=== PATIENT | female | born 1995 | race American Indian/Alaskan Native ===

== ENCOUNTER 2017-11-10 18:45 | Outpatient (CLI) | payer MEDICAID ==
[2017-11-10 20:24] VITALS: BP 117/67
[2017-11-10] MEDS ORDERED: LACTATED RINGERS 1,000 ML ONE (20:36)
[2017-11-10] MEDS ORDERED: LACTATED RINGERS 500 ML IV ONE (20:44)
[2017-11-10] MEDS ORDERED: BRETHINE ONE (21:54)
[2017-11-10 23:21] LABS: Bacteria,Urine 4+ /HPF (Negative); Bilirubin,Urine NEG (Negative); Blood,Urine NEG (Negative); Color,Urine Yellow (Yellow); Mucus,Urine FEW /HPF; Protein,Urine <15 mg/dL mg/dL (Negative); Urobilinogen,Urine < 2.0 mg/dL (<2.0)
[2017-11-11] MEDS ORDERED: LACTATED RINGERS 1,000 ML IV ONE (00:17)
[2017-11-11] MEDS ORDERED: BRETHINE IVP ONE (00:19)
== END 2017-11-11 00:01 | disposition home or self-care (01) ==
LOC: EDSTATUS 19:25 → TRG 19:30
PROVIDERS: ATTEND Obstetrics & Gynecology
DX: O26.853 Spotting complicating pregnancy, third trimester (principal); Z3A.29 29 weeks gestation of pregnancy
CPT/HCPCS: 59025; 81001; 96360; 96369; J3105; J7120

== ENCOUNTER 2018-08-05 14:52 | Emergency (ER) | payer MEDICAID ==
[2018-08-05 15:07] VITALS: BP 116/68
--- NOTE | 2018-08-05 15:07 | Emergency Department Report ---
Blank Doc - Documentation Documentation: pt presents for concern her IUD has moved suprapubic pain that began yesterday states that [facility] placed it Mar 2018 no urinary sx no fever no N/V/D no PMHx
[2018-08-05 16:14] LABS: Bacteria,Urine 1+ /HPF (Negative); Bilirubin,Urine NEG (Negative); Blood,Urine MOD (Negative); Color,Urine Yellow (Yellow); Mucus,Urine FEW /HPF; Protein,Urine <15 mg/dL mg/dL (Negative); Urobilinogen,Urine < 2.0 mg/dL (<2.0)
--- NOTE | 2018-08-05 16:18 | Emergency Department Report ---
ED Female HPI - General Chief complaint: Abdominal Pain Stated complaint: IUD CHECK UP Time Seen by Provider: 08/05/18 15:04 Source: patient Mode of arrival: Ambulatory Limitations: No Limitations - History of Present Illness Initial comments: This is a 23-year-old female presents to the emergency room with concerns of IUD being dislodged. Patient states she had an IUD inserted 4 months ago after given at [facility]. She is now complaining of pelvic pain. She denies vaginal bleeding, discharge, urinary frequency, urgency, dysuria. MD Complaint: pelvic pain Onset/Timin -: week(s) Location: suprapubic Radiation: non-radiating Severity: moderate Severity scale (0 -10): 5 Quality: cramping Consistency: intermittent Improves with: none Worsens with: none Are you Now?: No Associated Symptoms: denies other symptoms - Related Data Sexually active: Yes Previous Rx's Medication Instructions Recorded Last Taken Type Ibuprofen [Motrin 600 MG tab] 600 mg PO Q6HR #30 tablet 01/20/18 Unknown Rx Vit-Fe Fumar-FA [ 1 each PO QDAY #30 tablet 01/20/18 Unknown Rx Vitamin] Allergies Allergy/AdvReac Type Severity Reaction Status Date / Time No Known Allergies Allergy Unverified 11/10/17 20:43 ED Review of Systems ROS: Stated complaint: IUD CHECK UP Other details as noted in HPI Constitutional: denies: chills, fever Respiratory: denies: cough, shortness of breath, wheezing Cardiovascular: denies: chest pain, palpitations Gastrointestinal: abdominal pain, other (IUD dislodged). denies: nausea, diarrhea Genitourinary: denies: urgency, dysuria, discharge Neurological: as per HPI Psychiatric: denies: anxiety, depression ED Past Medical Hx - Past Medical History Previous Medical History?: No Hx Hypertension: No Hx Diabetes: No Hx Deep Vein Thrombosis: No Hx Renal Disease: No Hx Sickle Cell Disease: No Hx Seizures: No Hx Asthma: No Hx COPD: No Hx HIV: No - Surgical History Past Surgical History?: No - Social History Smoking Status: Never Smoker Substance Use Type: None - Medications Home Medications: Home Medications Medication Instructions Recorded Confirmed Last Taken Type Ibuprofen [Motrin 600 MG tab] 600 mg PO Q6HR #30 tablet 01/20/18 Unknown Rx Vit-Fe Fumar-FA [ 1 each PO QDAY #30 tablet 01/20/18 Unknown Rx Vitamin] ED Physical Exam - General Limitations: No Limitations General appearance: alert, in no apparent distress, obese - Respiratory Respiratory exam: Present: normal lung sounds bilaterally. Absent: respiratory distress - Cardiovascular Cardiovascular Exam: Present: regular rate, normal rhythm. Absent: systolic murmur, diastolic murmur, rubs, gallop - GI/Abdominal GI/Abdominal exam: Present: soft, normal bowel sounds. Absent: distended, tenderness, guarding, rebound, rigid, organomegaly, mass, bruit, pulsatile mass - Back Exam Back exam: Absent: CVA tenderness (R), CVA tenderness (L) - Neurological Exam Neurological exam: Present: alert, oriented X3 - Psychiatric Psychiatric exam: Present: normal affect, normal mood - Skin Skin exam: Present: warm, dry, intact, normal color. Absent: rash ED Course Vital Signs 08/05/18 15:04 Temperature 98.0 F Pulse Rate 78 Respiratory 18 Rate Blood Pressure 116/68 O2 Sat by Pulse 100 Oximetry ED Medical Decision Making - Radiology Data Radiology results: report reviewed PROCEDURE: US PELVIC COMPLETE, US TRANSVAGINAL TECHNIQUE: Transverse longitudinal sonograms obtained with floyd scale sonography. Transabdominal and transvaginal sonography. HISTORY: pt concerned for IUD displacement, pelvic pain COMPARISONS: None FINDINGS: Uterus measures 7.4 x 4.1 x 4.7 cm. Endometrial thickness 0.3 cm. Normal for age. Intramural fundal fibroid measuring 1.6 x 1.1 x 1.7 cm. IUD is identified. Normal superior to inferior position. Position is slightly eccentric to the right on transverse imaging. Right ovary measures 3.7 x 2.2 x 3.1 cm. 1.8 cm follicle noted. Left ovary measures 3.0 x 1.6 x 2.1 cm. 1.8 cm follicle noted. Ovaries demonstrate blood flow with Doppler Minimal free fluid pelvis. IMPRESSION: Normal-sized uterus with normal endometrial thickness Small fundal fibroid IUD was slightly eccentric position Adnexa unremarkable Trace free fluid. - Medical Decision Making Patient was examined by me. Vitals are normal and patient is in no acute distress. Obtained a urinalysis, urine test, and pelvic ultrasound. All labs are unremarkable. Ultrasound dictated radiologist report reviewed by myself. Normal-sized uterus with normal endometrial thickness. Small fundal fibroid IUD was slightly eccentric position. Adnexa unremarkable. Trace free fluid. Referral car refinisher for follow-up. Plan discussed with patient to discharge home and treat outpatient. She agrees with ER plan. Patient discharged home in stable condition. Follow up with PCP in 2-3 days. Critical care attestation.: If time is entered above; I have spent that time in minutes in the direct care of this critically ill patient, excluding procedure time. ED Disposition Clinical Impression: Fibroid, Pelvic pain, Encounter for routine checking of intrauterine contraceptive device (IUD) Disposition: TO HOME OR SELFCARE Is pt being admited?: No Does the pt Need Aspirin: No Condition: Stable Instructions: Abdominal Pain (ED), Uterine Fibroids (ED) Additional Instructions: Follow up with car refinisher for further evaluation. [facility] [Other] - 3-5 Days [facility] [Provider Group] - 3-5 Days [facility] [Provider Group] - 3-5 Days [facility] [Provider Group] - 3-5 Days Time of Disposition: 18:45
[2018-08-05 16:21] LABS: HCG Qualitative,Urine Negative (Negative)
--- NOTE | 2018-08-05 18:37 | Ultrasound Report ---
PROCEDURE: US PELVIC COMPLETE, US TRANSVAGINAL TECHNIQUE: Transverse longitudinal sonograms obtained with floyd scale sonography. Transabdominal and transvaginal sonography. HISTORY: pt concerned for IUD displacement, pelvic pain COMPARISONS: None FINDINGS: Uterus measures 7.4 x 4.1 x 4.7 cm. Endometrial thickness 0.3 cm. Normal for age. Intramural fundal fibroid measuring 1.6 x 1.1 x 1.7 cm. IUD is identified. Normal superior to inferior position. Position is slightly eccentric to the right on transverse imaging. Right ovary measures 3.7 x 2.2 x 3.1 cm. 1.8 cm follicle noted. Left ovary measures 3.0 x 1.6 x 2.1 cm. 1.8 cm follicle noted. Ovaries demonstrate blood flow with Doppler Minimal free fluid pelvis. IMPRESSION: Normal-sized uterus with normal endometrial thickness Small fundal fibroid IUD was slightly eccentric position Adnexa unremarkable Trace free fluid. This document is electronically signed by Arian Warren MD., Aug 05 2018 06:35:24 PM ET
== END 2018-08-05 18:55 | disposition home or self-care (01) ==
LOC: ED 14:52
DX: Z30.431 Encounter for routine checking of intrauterine contraceptive device (principal)
CPT/HCPCS: 76830; 76856; 81001; 81025; 99284

== ENCOUNTER 2020-07-24 12:18 | Emergency (ER) | payer MEDICAID | END 2020-07-24 15:46 | disposition left against medical advice (07) | LOC: ED 12:18 | CPT/HCPCS: 81001; 81025; 99283 ==